=== PATIENT | male | born 1960 | race Caucasian/White ===

== ENCOUNTER 2016-08-27 04:43 | Emergency (ER) | payer BC ==
[2016-08-27] MEDS ORDERED: POTASSIUM CHLO20 ME3 PO (04:55)
[2016-08-27] MEDS ORDERED: XANAX0.25 M1 PO (04:55)
[2016-08-27] MEDS ORDERED: COREG3.125 M1 PO (04:55)
[2016-08-27] MEDS ORDERED: ASPIRIN EC81 MG PO (04:56)
[2016-08-27] MEDS ORDERED: LASIX40 M1 PO (04:56)
[2016-08-27] MEDS ORDERED: SENNA S TABLET1 EACH PO (04:56)
[2016-08-27] MEDS ORDERED: NITRO-DUR1 EAC1 TP (04:57)
[2016-08-27] MEDS ORDERED: FISH OIL 1,2001 EAC7 PO (04:57)
[2016-08-27] MEDS ORDERED: CO Q-10100 M2 PO (04:58)
[2016-08-27 05:08] LABS: BASO % 0.3 % (0-2); EOS % 2.2 % (0-7); EOSINOPHIL ABSOLUTE COUNT 0.2 tho/cmm (0.0-0.7); HGB-HEMOGLOBIN 15.1 gm/dl (13.5-17.0); IMMATURE GRANULOCYTES ABSOLUTE 0.03 tho/cmm (0-0.03); IMMATURE GRANULOCYTES PERCENT 0.4 % (0-0.3); LYMPH % 32.4 % (20-45); LYMPH ABSOLUTE COUNT 2.2 tho/cmm (0.8-4.5); MCH (MEAN CORPUSCULAR HGB) 32.3 pg (28.0-32.0); MCHC MEAN CORPUSCULAR HGB CONC 35.1 % (32.0-36.0); MCV (MEAN CELL VOLUME) 91.9 fl (82.0-96.0); MEAN PLATELET VOLUME 10.2 cmc (9.4-12.4); MONO % 7.5 % (0-12); MONOCYTE ABSOLUTE COUNT 0.5 tho/cmm (0.0-1.2); NEUTROPHIL ABSOLUTE COUNT 3.8 tho/cmm (1.6-8.0); NEUTROPHIL-AUTOMATED 3.8 tho/cmm (1.6-8.0); NEUTROPHILS % 57.2 % (40-80); PLATELET COUNT 213 tho/cmm (150-450); RED BLOOD COUNT 4.68 mil/cmm (4.40-5.70); RED CELL DISTRIBUTION WIDTH 12.5 % (12.4-16.4); WHITE BLOOD COUNT 6.7 tho/cmm (4.0-10.0)
[2016-08-27 05:25] LABS: BLOOD UREA NITROGEN 19 mg/dl (6-24); CALCIUM 8.3 mg/dl (8.5-10.5); CARBON DIOXIDE-VENOUS 26 mmol/L (22-32); CHLORIDE 112 mmol/l (96-110); CREATININE 1.02 mg/dl (0.60-1.30); GLUCOSE 103 mg/dL (70-110); SODIUM 145 mmol/L (135-145); eGFR VALUE FOR BLACK >90 mL/Min
[2016-08-27 05:26] LABS: ANION GAP 11 mmol/L (0-20); MAGNESIUM 2.2 mg/dl (1.3-2.6); POTASSIUM 4.1 mmol/L (3.7-5.1)
== END 2016-08-27 10:47 ==
LOC: EDMED 04:43
PROVIDERS: Emergency Medicine
DX: I20.9 Angina pectoris, unspecified (principal); I10 Essential (primary) hypertension; E78.5 Hyperlipidemia, unspecified; Z90.49 Acquired absence of other specified parts of digestive tract
CPT/HCPCS: J2405